=== PATIENT | female | born 1985 | race Caucasian/White ===

== ENCOUNTER 2016-06-29 21:47 | Emergency (ER) | payer OTHER ==
[~2016-06-29] VITALS: Ht 157.5 cm; Wt 97.0 kg
[~2016-06-29 21:47] MED LIST: BEN50 PO; CEPH-443 PO; D-ME473S2 PO; FAMO-18 PO; IBUP-1542 PO; POTA10TA18 PO; PRED20TA PO; PREN-19 PO
[2016-06-29 21:51] VITALS: Ht 157.5 cm; Wt 97.0 kg
[2016-06-30] MEDS ORDERED: IBUPROFEN 600 MG TAB PO ONE (01:00)
[2016-06-30] MEDS ORDERED: LIDOCAINE 1% (MDV) 20 ML INJ SC ONE (01:00)
[2016-06-30] MEDS ORDERED: CEPH-443 PO (01:47)
[2016-06-30] MEDS ORDERED: IBUP-1542 PO (01:48)
[2016-06-30 02:09] VITALS: BP 126/86; PULSE 82; RESP 18; TEMP 98.6
--- NOTE | 2016-06-30 02:12 | ERD ---
ER Documentation Chief Complaint Date/Time DATE: 06/30/16 TIME: 02:09 Chief Complaint left big toe pain HPI 30-year-old female with no significant past medical history presents the ED complaining of a left great toe pain that started intermittently 1 month ago. States that she tried using a solution to clean her ingrown toenail however feels like the pain got worse. States that she also tried to cut the edge of the nail of herself however feels like she also made it worse. Denies any fever , chills, loss of sensation, loss of range of motion, injuries, trauma. Denies any numbness or tingling, weakness. ROS All systems reviewed and are negative except as per history of present illness. Medications Home Meds Active Scripts Ibuprofen* (Motrin*) 600 Mg Tab, 600 MG PO Q6, #30 TAB Prov:ADE GOFF PA-C 06/30/16 Cephalexin* (Keflex*) 500 Mg Capsule, 500 MG PO QID for 7 Days, CAP Prov:ADE GOFF PA-C 06/30/16 Cephalexin* (Keflex*) 500 Mg Capsule, 500 MG PO QID for 5 Days, CAP Prov:NICOLE MCDANIEL MD 08/22/15 Dextromethorphan Hb-Promethazine Hcl* (Promethazine DM* Syrup) 473 Ml Syrup, 5 ML PO Q6 Y for COUGH for 7 Days, ML Prov:NICOLE MCDANIEL MD 08/22/15 Ibuprofen* (Motrin*) 600 Mg Tab, 600 MG PO Q6H Y for PAIN AND OR ELEVATED TEMP, #20 TAB Prov:NICOLE MCDANIEL MD 08/22/15 Famotidine* (Pepcid*) 20 Mg Tablet, 20 MG PO BID for 4 Days, TAB Prov:EVA SPARROW DO 08/02/15 Diphenhydramine Hcl* (Benadryl*) 50 Mg Cap, 50 MG PO Q6H Y for ALLERGIC REACTION , #30 CAP Prov:EVA SPARROW DO 08/02/15 Prednisone* (Prednisone*) 20 Mg Tab, 60 MG PO DAILY for 5 Days, TAB Prov:EVA SPARROW DO 08/02/15 Reported Medications Potassium Citrate* (Potassium Citrate* ER) 10 Meq Tablet.sa, 10 MEQ PO TID, TAB.SA 05/26/14 Vit-Iron,Carbonyl-FA (Prenatabs Rx) 1 Tab Tablet, 1 TAB PO DAILY 08/01/13 Allergies Allergies: Coded Allergies: Sulfa (Sulfonamide Antibiotics) (Verified Allergy, Severe, hives, 04/30/14 ) per pt PMhx/Soc History of Surgery: Yes (KIDNEY REMOVED, UNK WHICH-PER PT.) Anesthesia Reaction: No Hx Neurological Disorder: No Hx Respiratory Disorders: No Hx Cardiac Disorders: Yes (HYPERLIPIDEMIA.) Hx Psychiatric Problems: No Hx Miscellaneous Medical Probl: Yes (GESTATINAL DM.) Hx Alcohol Use: No Hx Substance Use: No Hx Tobacco Use: No Physical Exam Vitals Vital Signs Date Time Temp Pulse Resp B/P Pulse Ox O2 Delivery O2 Flow Rate FiO2 06/30/16 02:09 98.6 82 18 126/86 98 Room Air 06/29/16 21:51 98.3 82 20 130/63 98 Physical Exam Const: [id number], well-nourished. In no acute distress. Head: Atraumatic, normocephalic Eyes: Normal Conjunctiva without injection ENT: Normal external ear, nose and mouth. Neck: Full range of motion. No meningismus. Resp: Clear to auscultation bilaterally. No wheezing, rhonchi, rales, or crackles. No accessory muscle use. No retractions. Cardio: Regular rate and rhythm, no murmurs Skin: No petechiae or rashes Back: No midline tenderness. No CVA tenderness. Ext: No cyanosis, or edema. Full range of motion of the IP, MTP joints. Curvature of the lateral and medial aspect of the left great toe nail likely secondary to ingrown toenail. Slight purulent discharge noted on the left lateral aspect of the great toe. No bleeding noted. No fluctuance or induration. No lymphatic streaking. Cap refill less than 2 seconds. Distal pulses intact bilaterally. Neur: Awake and alert. Normal gait and coordination. Muscle strength 5/5. Sensation intact bilaterally. Psych: Normal Mood and Affect Results 24 hrs Current Medications Medications (Trade) Dose Ordered Sig/Clif[place] Route PRN Reason Start Time Stop Time Status Last Admin Dose Admin Lidocaine (Xylocaine 1% (Mdv) 20 ml) 20 ml ONCE ONCE SC 06/30/16 01:00 1/12/17 01:01 DC Ibuprofen (Motrin) 600 mg ONCE ONCE PO 06/30/16 01:00 06/30/16 01:01 DC 06/30/16 00:49 Procedures/MDM This is a 30-year-old female with no significant past medical history presents the ED complaining of a left great toe pain due to her ingrown toenail. Patient is afebrile nontoxic appearing. Patient has normal vital signs. At this time patient gave consent to remove the curvature of the ingrown toenail to alleviate the pain. 10 cc lidocaine 1% was used to perform a digital block after the great toe was cleaned with Betadine. After the effects of anesthesia , the Tala clamp was used to remove the nail on both the medial and lateral aspects of the great toe keeping the nail bed intact in the middle. Patient tolerated the procedure without complications or difficulty. A clean dressing was applied to the area. Patient's extremity symptoms have stabilized while they have been evaluated in the department and are appropriate for outpatient follow up. No evidence of fractures, dislocations, compartment syndrome, neurologic injury, vascular injury, open joint, open fracture, tendon laceration , septic arthritis, osteomyelitis, DVT, foreign body, or other emergent conditions. Discharge medications: Keflex, ibuprofen Follow up with primary care physician in 1-2 days for referral to dielectric machine operator. Instructed patient to return to the ED sooner for any worsening symptoms. Patient's questions were answered. Patient understood and agreed with discharge plan. Patient discharged stable. Departure Diagnosis: Primary Impression: Ingrowing nail, right great toe Condition: Stable Patient Instructions: Ingrown Toenail, Excised, Ingrown Toenail, Infected (Abx Only) Referrals: [facility] YOU HAVE RECEIVED A MEDICAL SCREENING EXAM AND THE RESULTS INDICATE THAT YOU DO NOT HAVE A CONDITION THAT REQUIRES URGENT TREATMENT IN THE EMERGENCY DEPARTMENT. FURTHER EVALUATION AND TREATMENT OF YOUR CONDITION CAN WAIT UNTIL YOU ARE SEEN IN YOUR DOCTORS OFFICE WITHIN THE NEXT 1-2 DAYS. IT IS YOUR RESPONSIBILITY TO MAKE AN APPOINTMENT FOR FOLOW-UP CARE. IF YOU HAVE A PRIMARY DOCTOR --you should call your primary doctor and schedule an appointment IF YOU DO NOT HAVE A PRIMARY DOCTOR YOU CAN CALL OUR PHYSICIAN REFERRAL HOTLINE AT IF YOU CAN NOT AFFORD TO SEE A PHYSICIAN YOU CAN CHOSE FROM THE FOLLOWING [facility] [address] [place] [facility] [address] [facility] [address] [facility] [address] [facility] [address] [facility] [facility]. [address] [facility]. [facility] YOU HAVE RECEIVED A MEDICAL SCREENING EXAM AND THE RESULTS INDICATE THAT YOU DO NOT HAVE A CONDITION THAT REQUIRES URGENT TREATMENT IN THE EMERGENCY DEPARTMENT. FURTHER EVALUATION AND TREATMENT OF YOUR CONDITION CAN WAIT UNTIL YOU ARE SEEN IN YOUR DOCTORS OFFICE WITHIN THE NEXT 1-2 DAYS. IT IS YOUR RESPONSIBILITY TO MAKE AN APPOINTMENT FOR FOLOW-UP CARE. IF YOU HAVE A PRIMARY DOCTOR --you should call your primary doctor and schedule and appointment IF YOU DO NOT HAVE A PRIMARY DOCTOR YOU CAN CALL OUR PHYSICIAN REFERRAL HOTLINE AT . IF YOU CAN NOT AFFORD TO SEE A PHYSICIAN YOU CAN CHOSE FROM THE FOLLOWING [facility] INSTITUTIONS: [facility] [address] [place] [address] [facility] [address] [place] [address] [facility] [address] [place] [address] Additional Instructions: FOLLOW UP WITH YOUR PRIMARY CARE PHYSICIAN TOMORROW for a referral to dielectric machine operator. Return to this facility if you are not improving as expected. ADE GOFF PA-C Jun 30, 2016 02:12
== END 2016-06-30 02:13 | disposition home or self-care (01) ==
LOC: FTE 21:47
DX: L60.0 Ingrowing nail (principal)
CPT/HCPCS: 11765; Z7502; Z7610

== ENCOUNTER 2018-02-16 14:50 | Emergency (ER) | END 2018-02-16 18:35 | disposition home or self-care (01) ==